=== PATIENT | female | born 1960 | race Caucasian/White ===

== ENCOUNTER 2022-08-03 15:04 | Outpatient (CLI) | payer BC | END 2022-08-03 15:05 | disposition home or self-care (01) | LOC: CSHMAMMO 15:04 | PROVIDERS: ATTEND Family Medicine | DX: Z12.31 Encounter for screening mammogram for malignant neoplasm of breast (principal); Z80.3 Family history of malignant neoplasm of breast | CPT/HCPCS: 77063; 77067 ==